=== PATIENT | male | born 1995 | race African-American/Black ===

== ENCOUNTER 2023-01-17 20:30 | Emergency (ER) | payer MEDICAID, SELFPAY ==
[2023-01-17 20:32] VITALS: BP 163/100; PULSE 112; RESP 19; TEMP 36.8; O2SAT 100; BMI 47.0
--- NOTE | 2023-01-17 20:52 | EDS_ITS ---
HPI HPI - URI History of Present Illness Chief Complaint: Cold Sx Informant: patient Onset/Context/Timing Onset: Weeks Context: Gradual Onset Timing: Intermittent Current Severity: Mild Maximum Severity: Mild Associated Symptoms Associated Symptoms: Positive for Nasal Congestion and Nonproductive cough; Ne gative for Vomiting, Diarrhea, Shortness of Breath or Hemoptysis Narrative Narrative: 27-year-old man is seen in past medical or surgical history. States the last several weeks he has had a nonproductive cough with nasal congestion. No fever. No shortness of breath. No hemoptysis. Also states that he has had dry skin on his left index finger for a year and he wanted to have that evaluated also. Prior similar symptoms: Yes Recent Illness/Hospitalization: No ROS ROS ED ROS Narrative Cough. Nasal congestion. Review of Systems ROS Unobtainable: Denies due to encephalopathy Constitutional Constitutional ED: Denies chills or fever(s) Eyes Eyes: Denies blurry vision ENT ENT ED: Reports rhinorrhea; Denies ear pain or sore throat Cardiovascular Cardiovascular: Denies chest pain Respiratory/Chest Respiratory/Chest: Reports cough; Denies dyspnea Gastrointestinal Gastrointestinal: Denies abdominal pain Genitourinary Genitourinary ED: Denies dysuria or hematuria Musculoskeletal Musculoskeletal: Denies arthralgias Integumentary Denies abscess Neurologic Neurologic: Denies headache(s) Psychiatric Psychiatric: Denies anxiety or depression Endocrine Endocrinology: Denies cold intolerance Hematologic/Lymphatic Hematologic/Lymphatic: Denies easy bleeding Allergic/Immunologic Allergic/Immunologic ED: Denies mouth swelling PFSH PFSH Medical History no medical history no medical history Allergy/AdvReac Type Severity Reaction Status Date / Time No Known Allergies Allergy Verified 01/17/23 20:32 Surgical History no surgical history no surgical history EXAM Physical Exam Narrative Exam Narrative: 7-year-old male no acute distress. Vital signs stable afebrile. Blood pressure slightly elevated at 163/100. H EENT exam TMs normal. Posterior pharynx normal. Clear nasal congestion. Frontal maxillary sinuses are nontender. Neck nontender no lymphadenopathy. Lungs clear to auscultation. Heart regular rhythm no murmur. Abdomen soft nontender. Moving all 4 extremities. Calves nontender without edema or cords. His left index finger on the palmar side by the DIP skin crease is some dry skin. It does not look fungal. He has full range of motion all digits of the hand. There is no swelling or redness. No signs of trauma. Neurologically he is awake and alert with no focal motor deficits. Very benign exam. Const Vital Signs: 01/17/23 20:32 Temperature 98.2 F Temperature Source Temporal Pulse Rate 112 H Respiratory Rate 19 H Blood Pressure 163/100 H Blood Pressure Mean 121 Pulse Ox 100 Oxygen Delivery Method Room Air Positive well nourished, well developed and obese; Negative for cachectic or contractures General Appearance ED: well developed; Negative for cachectic, contractures or pallor Nutritional Appearance: obese; Negative for cachectic HEENT Reports moist mucous membranes; Denies dry mucous membranes normocephalic and atraumatic Face and Sinus: Negative for sinus tenderness, maxillary instability or facial tenderness Mouth ED: No dry mucous membranes Mouth: No dry mucous membranes Throat: posterior oropharynx normal; Negative for tonsils abnormal or posterior oropharynx abnormal Eyes PERRL and EOMs intact bilaterally General Eye ED: Negative for pale conjunctiva or scleral icterus Neck General: Negative for anterior neck swelling or lymphadenopathy Resp normal respiratory effort and clear to auscultation bilaterally Effort and Inspection: Negative for retractions Auscultation: Negative for rales, rhonchi or wheezes Cardio S1 normal heart sound, S2 normal heart sound and no murmurs Rate: regular rate Rhythm: regular rhythm GI non-tender, non-distended and no masses Inspection: Negative for abdominal distention Auscultation: normoactive bowel sounds Palpation: soft; Negative for tender or guarding Back/Spine no CVA tenderness and normal ROM General Back: Negative for CVA tenderness Cervical Spine: Negative for cervical spine tenderness Thoracic Spine / Upper Back: Negative for thoracic spinal tenderness Lumbar Spine / Lower Back: Negative for lumbar spinal tenderness Sacrum: Negative for tenderness Extremity normal to inspection and full ROM Extremity Narrative: Dry skin, left index finger palmar surface on the DIP skin crease. Normal range of motion. No cellulitis. No deformity. Nontender. General Extremety ED: Negative for cyanosis, tenderness or other findings General Extremity: Negative for cyanosis or other findings Neuro oriented x3 and CN's II-XII intact bilaterally Sensorium / Orientation: alert, oriented to person, oriented to place and oriented to time; Negative for orientation impaired or lethargic Motor Exam: strength 5/5 throughout Psych mental status grossly normal Appearance: Negative for other Attitude: No agitated Mood & Affect: Negative for depressed, anxious or tearful Skin Skin Narrative: Dry skin left index finger. General Skin Exam: Negative for jaundice or pallor Lesions: no lesions Rashes: no rashes Trauma: Negative for abrasion or laceration MDM MDM MDM Narrative Medical decision making narrative: 19-year-old male has symptoms consistent with seasonal allergies. Static dry cough and nasal congestion. He does not need antibiotics. Are clear bilaterally. He is in no distress and his pulse ox is 100%. He also has dried skin on his left index finger. Of instructed to use skin moisturizer. Follow- up if not improving. He also be instructed his blood pressure was elevated today he should have that rechecked. He will not be started on any medications for that. Discharge Plan Triage Chief Complaint: Cold Sx ED Provider: Berny Boswell Dx/Rx/DC Orders Clinical Impression: Acute seasonal allergic rhinitis, Dry skin, Elevated blood pressure reading Instructions: Nasal Allergy Medicines Primary Care Provider: Care Physician,No Primary Referrals: Don Holder MD [Med Staff - Assistant Professor Of [employer] Sciences] - As Needed Care Physician,No Primary [Primary Care Provider] - Activity Restrictions/Additional Instructions: Most likely her nasal congestion and cough are from seasonal allergies also from the hot dry weather we have been having lately. You do not need antibiotics. For the dry skin on your finger just use a skin moisturizer 2 or 3 times a day it should improve. Your blood pressure was elevated today at 163/100. You should have that rechecked in the next several weeks. To ensure you are not developing high blood pressure. Follow-up with a local primary care physician. Disposition Disposition: Home, Self Care
== END 2023-01-17 21:10 | disposition home or self-care (01) ==
LOC: ED 21:07
PROVIDERS: Emergency Provider Emergency Medicine; Visit Provider Emergency Medicine
DX: J30.9 Allergic rhinitis, unspecified (principal); L85.3 Xerosis cutis; R03.0 Elevated blood-pressure reading, without diagnosis of hypertension; E66.9 Obesity, unspecified
CPT/HCPCS: 99282